=== PATIENT | female | born 2000 | race American Indian/Alaskan Native ===

== ENCOUNTER 2019-08-04 19:53 | Emergency (ER) | payer MEDICAID ==
--- NOTE | 2019-08-04 20:39 | Emergency Department Report ---
Blank Doc - Documentation Documentation: 18-year-old female that presents with lower back pains s/p fall. Denies any o ther injuries. Denies any vaginal bleeding. Stated is about 8 weeks . This initial assessment/diagnostic orders/clinical plan/treatment(s) is/are subject to change based on patient's health status, clinical progression and re- assessment by fellow clinical providers in the ED. Further treatment and workup at subsequent clinical providers discretion. Patient/guardians urged not to elope from the ED as their condition may be serious if not clinically assessed and managed. Initial orders include: 1- Patient sent to [facility] for further evaluation and treatment 2- US OB 3- UA
[2019-08-04 21:12] LABS: Bacteria,Urine 1+ /HPF (Negative); Bilirubin,Urine NEG (Negative); Blood,Urine NEG (Negative); Color,Urine Yellow (Yellow); Protein,Urine <15 mg/dL mg/dL (Negative); Urobilinogen,Urine < 2.0 mg/dL (<2.0)
--- NOTE | 2019-08-04 22:02 | Ultrasound Report ---
ULTRASOUND OBSTETRIC INDICATION / CLINICAL INFORMATION: low back pain. TECHNIQUE: Transabdominal. COMPARISON: None available. FINDINGS: GESTATIONAL SAC: Well-defined oval shape and intrauterine in location. YOLK SAC: No significant abnormality. EMBRYO/FETUS: No significant abnormality. - [place]-Rump Length = 1.97 cm = 8 weeks, 3 day(s). - Heart Rate, beats per minute (if present) = 172 ADNEXA: Slightly complex right ovarian cyst with thin internal septation measures 2.5 x 2.3 x 2.4 cm. Left ovary appears within normal limits. FREE FLUID: None. ADDITIONAL FINDINGS: None. IMPRESSION: 1. Single, living intrauterine with estimated sonographic age of 8 weeks, 3 day(s). 2. 2.5 cm minimally complex right ovarian follicular cyst with thin internal septation Signer Name: Walter Manuel MD Signed: 08/04/2019 9:58 PM Workstation Name: [id number]
[2019-08-04] MEDS ORDERED: ACETAMINOPHEN 500 MG TAB PO ONE (22:08)
[2019-08-04] MEDS ORDERED: cephALEXin 500 MG CAP PO ONE (22:08)
--- NOTE | 2019-08-04 22:47 | Emergency Department Report ---
ED Fall HPI - General Chief Complaint: Fall Stated Complaint: FALL, LOWER BACK PAIN 8 WEEKS Time Seen by Provider: 08/04/19 20:38 Source: patient, EMS Mode of arrival: Ambulatory - History of Present Illness Initial Comments: Patient is a A1 18-year-old -Chinese female who is approximately 8 weeks gestation who presents to the ED with complaint of acute onset persistent low back pain after she slipped off a bunk bed and fell down on the floor about 6 hours ago. Patient states that the pain is moderate but she would like to evaluated to 7 if it week fetus is well. Patient denies vaginal bleeding, abdominal pain, head or neck injury, chest pain, shortness of breath, numbness and tingling or weakness of lower extremities bilaterally, dizziness, syncope, nausea and vomiting. Patient states that she is currently living at a fpc where she sleeps in an upper bunk bed. 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 denies: headache, neck pain, numbness, weakness, chest paint, shortness of breath, abdominal pain, hematuria, unable to walk, lightheaded, vertigo, confusion - Related Data Previous Rx's Medication Instructions Recorded Last Taken Type Cyclobenzaprine HCl [Flexeril 5 MG 5 mg PO Q8H PRN #15 tab 08/04/19 Unknown Rx TAB] Allergies Allergy/AdvReac Type Severity Reaction Status Date / Time No Known Allergies Allergy Verified 08/04/19 19:58 ED Review of Systems ROS: Stated complaint: FALL, LOWER BACK PAIN 8 WEEKS Other details as noted in HPI Constitutional: denies: chills, fever Eyes: denies: eye pain, eye discharge, vision change ENT: denies: ear pain, throat pain Respiratory: denies: cough, shortness of breath, wheezing Cardiovascular: denies: chest pain, palpitations Endocrine: no symptoms reported Gastrointestinal: denies: abdominal pain, nausea, diarrhea Genitourinary: denies: urgency, dysuria, discharge Musculoskeletal: back pain (lower). denies: joint swelling, arthralgia Skin: denies: rash, lesions Neurological: denies: headache, weakness, paresthesias Psychiatric: denies: anxiety, depression Hematological/Lymphatic: denies: easy bleeding, easy bruising ED Past Medical Hx - Past Medical History Previous Medical History?: No - Surgical History Past Surgical History?: No - Social History Smoking Status: Never Smoker Substance Use Type: None - Medications Home Medications: Home Medications Medication Instructions Recorded Confirmed Last Taken Type Cyclobenzaprine HCl [Flexeril 5 MG 5 mg PO Q8H PRN #15 tab 08/04/19 Unknown Rx TAB] ED Physical Exam - General Limitations: No Limitations General appearance: alert, in no apparent distress - Head Head exam: Present: atraumatic, normocephalic, normal inspection - Eye Eye exam: Present: normal appearance, PERRL, EOMI Pupils: Present: normal accommodation - ENT ENT exam: Present: normal exam, normal orophraynx, mucous membranes moist, TM's normal bilaterally, normal external ear exam - Neck Neck exam: Present: normal inspection, full ROM - Respiratory Respiratory exam: Present: normal lung sounds bilaterally. Absent: respiratory distress, wheezes, rhonchi, stridor, chest wall tenderness, accessory muscle use, decreased breath sounds - Cardiovascular Cardiovascular Exam: Present: regular rate, normal rhythm, normal heart sounds. Absent: systolic murmur, diastolic murmur, rubs, gallop - GI/Abdominal GI/Abdominal exam: Present: soft, normal bowel sounds. Absent: tenderness, guarding, hyperactive bowel sounds, hypoactive bowel sounds, organomegaly - Extremities Exam Extremities exam: Present: normal inspection, full ROM, normal capillary refill - Back Exam Back exam: Present: normal inspection, full ROM, tenderness (palpable lumbosacral paraspinal musculoskeletal tenderness), muscle spasm, paraspinal tenderness - Neurological Exam Neurological exam: Present: alert, oriented X3, CN II-XII intact, normal gait, reflexes normal - Psychiatric Psychiatric exam: Present: normal affect, normal mood - Skin Skin exam: Present: warm, dry, intact, normal color. Absent: rash ED Course Vital Signs 08/04/19 20:39 Temperature 99.2 F Pulse Rate 91 H Respiratory 18 Rate Blood Pressure 143/92 O2 Sat by Pulse 100 Oximetry - Reevaluation(s) Reevaluation #1: 08/04/19 22:46 This is a 18-year-old Afro-Chinese female who is approximately 8 weeks gestation who presented to the ED with low back pain after fall from a bed. In the ED, patient is alert and oriented 3 and is not in distress. Patient was treated for pain in the ED and transvaginal ultrasound shows a single living intrauterine with estimated sonographic age of 8 weeks, 3 day(s) with heart rate of 1 72 bpm. It also shows a 2.5 cm minimally complex right ovarian follicular cyst with thin internal septation. On reevaluation, patient's pain is well controlled with medications. 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 ED Medical Decision Making - Radiology Data Findings [facility] [address] [place] [address] Ultrasound Report Signed Patient: VALENTINA HURLEY MR#: [id number] : 2000 Acct:[id number] Age/Sex: 18 / F ADM Date: 08/04/19 Loc: ED Attending Dr: Ordering Physician: KENNETH ESCOBAR NP Date of Service: 08/04/19 Procedure(s): US OB <= 14 weeks fetus Accession Number(s): [id number] cc: KENNETH ESCOBAR NP ULTRASOUND OBSTETRIC INDICATION / CLINICAL INFORMATION: low back pain. TECHNIQUE: Transabdominal. COMPARISON: None available. FINDINGS: GESTATIONAL SAC: Well-defined oval shape and intrauterine in location. YOLK SAC: No significant abnormality. EMBRYO/FETUS: No significant abnormality. - [place]-Rump Length = 1.97 cm = 8 weeks, 3 day(s). - Heart Rate, beats per minute (if present) = 172 ADNEXA: Slightly complex right ovarian cyst with thin internal septation measures 2.5 x 2.3 x 2.4 cm. Left ovary appears within normal limits. FREE FLUID: None. ADDITIONAL FINDINGS: None. IMPRESSION: 1. Single, living intrauterine with estimated sonographic age of 8 weeks, 3 day(s). 2. 2.5 cm minimally complex right ovarian follicular cyst with thin internal septation Signer Name: Walter Manuel MD Signed: 08/04/2019 9:58 PM Workstation Name: [id number] Transcribed By: TL Dictated By: Walter Manuel MD Electronically Authenticated By: Walter Manuel MD Signed Date/Time: 08/04/192157 DD/ 55 - Medical Decision Making This is a 18-year-old Afro-Chinese female who is approximately 8 weeks gestation who presented to the ED with low back pain after fall from a bed. In the ED, patient is alert and oriented 3 and is not in distress. Patient was treated for pain in the ED and transvaginal ultrasound shows a single living intrauterine with estimated sonographic age of 8 weeks, 3 day(s) with heart rate of 1 72 bpm. It also shows a 2.5 cm minimally complex right ovarian follicular cyst with thin internal septation. On reevaluation, patient's pain is well controlled with medications. 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 - Differential Diagnosis Muscle spasm of back; muscle strain; contusion of lower back Critical care attestation.: If time is entered above; I have spent that time in minutes in the direct care of this critically ill patient, excluding procedure time. ED Disposition Clinical Impression: Spasm of muscle of lower back Contusion of lower back Qualifiers: Encounter type: initial encounter Qualified Code(s): S30.0XXA - Contusion of lower back and pelvis, initial encounter Disposition: - TO HOME OR SELFCARE Is pt being admited?: No Does the pt Need Aspirin: No Condition: Stable Instructions: Muscle Spasm (ED), Muscle Strain (ED) Additional Instructions: Take medication with food, drink plenty of fluids and follow-up with your primary care physician in 5-7 days for reevaluation. Return to the ED immediately if symptoms get worse. Prescriptions: Cyclobenzaprine HCl [Flexeril 5 MG TAB] 5 mg PO Q8H PRN #15 tab PRN Reason: Muscle Spasm Referrals: PRIMARY CARE, [Primary Care Provider] - 3-5 Days Time of Disposition: 22:51 Print Language: CITIZEN OF [place]
[2019-08-05 00:36] VITALS: BP 120/66
== END 2019-08-05 00:35 | disposition home or self-care (01) ==
LOC: ED 19:53
DX: O9A.211 Injury, poisoning and certain other consequences of external causes complicating pregnancy, first trimester (principal); S30.0XXA Contusion of lower back and pelvis, initial encounter; M62.830 Muscle spasm of back; Z3A.08 8 weeks gestation of pregnancy; W01.0XXA Fall on same level from slipping, tripping and stumbling without subsequent striking against object, initial encounter; Y93.89 Activity, other specified; Y92.89 Other specified places as the place of occurrence of the external cause; Y99.8 Other external cause status
CPT/HCPCS: 76801; 81001; 87086